=== PATIENT | male | born 1955 | race Caucasian/White ===

== ENCOUNTER 2019-10-08 18:49 | Emergency (ER) | payer BC ==
[2019-10-08] MEDS ORDERED: Sodium Chloride 0.9% 1,000 ML IV ONE (19:09)
[2019-10-08] MEDS ORDERED: Clindamycin Phosphate 900 MG in Sodium Chloride 0.9% 100 ML IV ONE (19:09)
--- NOTE | 2019-10-08 19:13 | EDM.PDOC ---
ED HPI GENERAL MEDICAL PROBLEM - General Chief Complaint: Wound Recheck Stated Complaint: INFECTED FOOT Time Seen by Provider: 10/08/19 19:10 Source of Information: Reports: Patient History Limitations: Reports: No Limitations - History of Present Illness INITIAL COMMENTS - FREE TEXT/NARRATIVE: c/o left foot infection past 3 months. spouse states it's looking worse tonight and pt hadn't seen anyone for it yet but has appt next week at clinic. Left Feet Pain Score (Numeric/FACES): 9 - Related Data Allergies Allergy/AdvReac Type Severity Reaction Status Date / Time bupropion HCl Allergy Unknown UNKNOWN Verified 10/08/19 19:23 [From Wellbutrin] itraconazole Allergy Unknown UNKNOWN Verified 10/08/19 19:23 Home Meds: Home Meds metFORMIN [Glucophage] 1,000 mg PO BID 03/21/14 [History] Aspirin [Halfprin] 81 mg PO DAILY 10/08/19 [History] Empagliflozin [Jardiance] 25 mg PO DAILY 10/08/19 [History] Gabapentin [Neurontin] 100 mg PO BID 10/08/19 [History] Liraglutide [Victoza] 1.8 mg SQ DAILY 10/08/19 [History] Lisinopril [Zestril] 10 mg PO DAILY 10/08/19 [History] Naproxen Sodium 220 mg PO BID 10/08/19 [History] Omeprazole 20 mg PO BIDAC 10/08/19 [History] Saxagliptin HCl [Onglyza] 5 mg PO DAILY 10/08/19 [History] atorvaSTATin [Lipitor] 40 mg PO BEDTIME 10/08/19 [History] ED ROS GENERAL - Review of Systems Review Of Systems: Comprehensive ROS is negative, except as noted in HPI. ED EXAM, SKIN/RASH Exam: See Below Exam Limited By: No Limitations General Appearance: Alert, WD/WN, Mild Distress, Other (discomfort) Ears: Hearing Grossly Normal Throat/Mouth: Normal Voice, No Airway Compromise Head: Atraumatic Neck: Non-Tender, Full Range of Motion Respiratory/Chest: No Respiratory Distress Cardiovascular: Regular Rate, Rhythm GI/Abdominal: Soft, Non-Tender Extremities: Other (abscess with celluitis dorsum left foot, NV wnl) Neurological: Alert, Oriented, Normal Cognition, No Motor/Sensory Deficits Psychiatric: Flat Affect Skin: Warm, Dry, Normal Color Location, Skin: Lower Extremity, Right Characteristics: Erythematous Associated features: Tenderness, Swelling, Inflammation. No: Lymphangitis, Weeping Lymphatic: No Adenopathy ED SKIN PROCEDURES - I&D Site: left foot dorsum Skin Prep: Providone-Iodine (Betadine) Local Anesthesia: Lidocaine: Other (biofreeze) Area Incised With: 11 Blade Drainage: Purulent, Bloody, Moderate Amount Probed to Break Up Loculations: No Packed With: None Sterile Dressinx4(s) Complications: No Course - Vital Signs Last Recorded V/S: Last Vital Signs Temp 37.4 C 10/08/19 19:12 Pulse 108 H 10/08/19 19:12 Resp 17 10/08/19 19:12 BP 137/65 10/08/19 19:12 Pulse Ox 98 10/08/19 19:12 - Orders/Labs/Meds Orders: Active Orders 24 hr Category Date Time Status CULTURE BLOOD [BC] Stat Lab 10/08/19 19:08 Received Labs: Laboratory Tests 10/08/19 10/08/19 10/08/19 Range/Units 19:08 19:08 19:08 WBC 14.9 H (5.0-10.0) 10^3/uL RBC 4.86 (4.6-6.2) 10^6/uL Hgb 14.9 (14.0-18.0) g/dL Hct 44.7 (40.0-54.0) % MCV 92.0 D (80-100) fL MCH 30.7 (27.0-34.0) pg MCHC 33.3 (33.0-35.0) g/dL Plt Count 222 (150-450) 10^3/uL Neut % (Auto) 85.1 H (42.2-75.2) % Lymph % (Auto) 4.8 L (20.5-50.1) % [place] % (Auto) 9.8 H (2-8) % Eos % (Auto) 0.1 L (1.0-3.0) % Baso % (Auto) 0.2 (0.0-1.0) % Sodium 135 (135-145) mmol/L Potassium 4.3 (3.6-5.0) mmol/L Chloride 100 L (101-111) mmol/L Carbon Dioxide 23.0 (21.0-31.0) mmol/L Anion Gap 16.3 BUN 19 H (7-18) mg/dL Creatinine 0.8 (0.6-1.3) mg/dL Est Cr Clr Drug Dosing 99.35 mL/min Estimated GFR (MDRD) > 60 BUN/Creatinine Ratio 23.75 Glucose 151 H (74-105) mg/dL Lactic Acid 2.3 H* (0.5-2.0) mmol/L Calcium 9.3 (8.4-10.2) mg/dl Total Bilirubin 0.8 (0.2-1.0) mg/dL AST 20 (10-42) IU/L ALT 20 (10-60) IU/L Alkaline Phosphatase 70 (42-121) IU/L Total Protein 7.4 (6.7-8.2) g/dl Albumin 4.1 (3.2-5.5) g/dl Globulin 3.3 Albumin/Globulin Ratio 1.24 Meds: Medications Discontinued Medications Generic Name Dose Route Start Last Admin Trade Name Maggie PRN Reason Stop Dose Admin Fentanyl 50 mcg 10/08/19 21:57 10/08/19 22:02 Sublimaze IVPUSH 10/08/19 21:58 50 mcg ONETIME ONE Administration Clindamycin Phosphate 900 mg/ 106 mls @ 200 mls/hr 10/08/19 19:09 10/08/19 19 :17 Sodium Chloride IV 10/08/19 19:40 200 mls/hr ONETIME ONE Administration Sodium Chloride 1,000 mls @ 999 mls/hr 10/08/19 19:09 10/08/19 19:49 Normal Saline IV 10/08/19 20:09 999 mls/hr .BOLUS ONE Infusion Iopamidol 100 ml 10/08/19 19:48 10/08/19 20:01 Isovue-300 (61%) IVPUSH 10/08/19 19:49 100 ml ONETIME ONE Administration Departure - Departure Time of Disposition: 22:17 Disposition: Home, Self-Care 01 Condition: Good Clinical Impression: Cellulitis Qualifiers: Site of cellulitis: extremity Site of cellulitis of extremity: lower extremity Laterality: left Qualified Code(s): L03.116 - Cellulitis of left lower limb - Discharge Information Instructions: Incision and Drainage, Care After Referrals: PCP,None [Primary Care Provider] - Forms: ED Department Discharge Additional Instructions: 1) keep wound clean dry covered 2) elevate leg as much as possible 3) see Press Room Supervisor Thursday per appointment 4) recheck if there is any change or concern rx given; clindamycin 300mg qid x 40 vicodin 5/325mg tid prn x 6 Sepsis Event Note - Focused Exam Vital Signs: Vital Signs Temp Pulse Resp BP Pulse Ox 10/08/19 19:12 37.4 C 108 H 17 137/65 98 Date Exam was Performed: 10/08/19 Time Exam was Performed: 22:16 - My Orders Last 24 Hours: My Active Orders 10/08/19 19:08 CULTURE BLOOD [BC] Stat - Assessment/Plan Last 24 Hours: My Active Orders 10/08/19 19:08 CULTURE BLOOD [BC] Stat
[2019-10-08 19:40] LABS: ANION GAP 16.3; CHLORIDE,CL 100 mmol/L (101-111); SODIUM,NA 135 mmol/L (135-145)
[2019-10-08] MEDS ORDERED: Iopamidol 612 MG/ML 100 ML Bottle IVPUSH ONE (19:48)
[2019-10-08] MEDS ORDERED: fentaNYL 100 MCG/2 ML SDV IVPUSH ONE (21:57)
== END 2019-10-08 22:43 | disposition home or self-care (01) ==
LOC: DL.ED 18:49
DX: L03.116 Cellulitis of left lower limb (principal); L02.416 Cutaneous abscess of left lower limb; Z79.82 Long term (current) use of aspirin; Z79.899 Other long term (current) drug therapy; Z88.3 Allergy status to other anti-infective agents; Z88.8 Allergy status to other drugs, medicaments and biological substances
CPT/HCPCS: 10060; 36415; 73701; 80053; 83605; 85025; 87040; 87070; 87077; 87186; 96361; 96365; 96375; 99284; J3010; J3490; J7030; J7050; Q9967

== ENCOUNTER 2024-12-22 16:53 | Emergency (ER) | payer MEDICARE, OTHER ==
[2024-12-22 19:05] LABS: BASOPHILS PERCENT AUTO 0.2 % (0.0-1.0); EOSINOPHILS PERCENT AUTO 0.4 % (1.0-3.0); HEMATOCRIT 45.1 % (40.0-54.0); HEMOGLOBIN 15.2 g/dL (14.0-18.0); LYMPHOCYTES PERCENT AUTO 8.3 % (20.5-50.1); MEAN CORPUSCULAR HEMOGLOBIN 34.2 pg (27.0-34.0); MEAN CORPUSCULAR HGB CONC 33.7 g/dL (33.0-35.0); MEAN CORPUSCULAR VOLUME 101.6 fL (80-100); MONOCYTES PERCENT AUTO 6.2 % (2-8); NEUTROPHILS PERCENT AUTO 84.9 % (42.2-75.2); PLATELET COUNT,PLT 194 10^3/uL (150-450); RED BLOOD CELL COUNT 4.44 10^6/uL (4.6-6.2); WHITE BLOOD CELL COUNT,WBC 18.2 10^3/uL (5.0-10.0)
[2024-12-22 19:21] LABS: PROTHROMBIN TIME 10.7 SEC (9.0-12.0)
[2024-12-22 19:26] LABS: A/G RATIO 1.3; ALBUMIN 3.5 g/dL (3.4-5.0); BILIRUBIN TOTAL 0.4 mg/dL (0.2-1.0); BUN/CREATININE RATIO 24.6 (No establ ref range); CALCIUM 9.4 mg/dL (8.5-10.1); CREATININE 0.57 mg/dL (0.70-1.30); EST CRCL DRUG DOSING (CG) 126.29 mL/min; PROTEIN TOTAL,TP 6.2 g/dL (6.4-8.2)
[2024-12-22] MEDS: Morphine 4 MG/ML Syringe IVPUSH PRN (20:04)
[2024-12-22] MEDS: Nicotine 21 MG/24 Hr Patch TRDERM ONE (20:20)
[2024-12-22 21:12] LABS: APPEARANCE,URINE CLEAR (CLEAR); BILIRUBIN,URINE NEGATIVE (NEGATIVE); GLUCOSE,URINE NEGATIVE (NEGATIVE); KETONES,URINE NEGATIVE (NEGATIVE); LEUKOCYTE ESTERASE,URINE NEGATIVE (NEGATIVE); NITRITE,URINE NEGATIVE (NEGATIVE); OCCULT BLOOD,URINE NEGATIVE (NEGATIVE); PROTEIN,URINE NEGATIVE (NEGATIVE); UROBILINOGEN,URINE 0.2 mg/dL (0.2-1.0)
[2024-12-22 21:13] LABS: COLOR,URINE LIGHT YELLOW (YELLOW)
== END 2024-12-23 01:41 ==
LOC: DL.ED 16:53
DX: S72.001A Fracture of unspecified part of neck of right femur, initial encounter for closed fracture (principal); E11.9 Type 2 diabetes mellitus without complications; F17.210 Nicotine dependence, cigarettes, uncomplicated; Z88.8 Allergy status to other drugs, medicaments and biological substances; Z79.82 Long term (current) use of aspirin; Z79.84 Long term (current) use of oral hypoglycemic drugs; Z79.899 Other long term (current) drug therapy; W19.XXXA Unspecified fall, initial encounter
CPT/HCPCS: 36415; 71045; 73502; 80053; 81003; 85025; 85610; 93005; 96374; 96376; 99285; A9270; J2270